=== PATIENT | male | born 1970 | race Two or more races ===

== ENCOUNTER 2023-11-08 07:16 | Day surgery (SDC) | payer OTHER ==
[2023-10-25 09:45] LABS: HEMATOCRIT 45.9 % (39.0-48.0); HEMOGLOBIN 15.8 g/dL (13-16.00); MEAN CELL VOLUME 94.9 fL (80.0-100.00); MEAN CORPUSCULAR HEMOGLOBIN 32.6 pg (27.00-32.0); MEAN CORPUSCULAR HGB CONC 34.4 g/dl (32.0-36.0); PLATELET COUNT 151 K/uL (150-450); RED BLOOD COUNT 4.84 M/uL (4.00-6.00); RED CELL DISTRIBUTION WIDTH 12.6 % (11.5-14.5)
[2023-10-25 09:47] LABS: PH,URINE 5.5 (5.0-8.0); URINE APPEARANCE Clear; URINE BILIRRUBIN Negative (NEGATIVE); URINE BLOOD Negative; URINE COLOR Yellow; URINE GLUCOSE Negative (NEGATIVE); URINE KETONE Trace (NEGATIVE); URINE LEUKOCYTE Negative; URINE NITRATE Negative; URINE PROTEIN Negative (NEGATIVE); URINE UROBILINOGEN 0.2 E.U./dl
[2023-10-25 09:52] LABS: URINE BACTERIA 16.3 uL (0.0-1933); URINE RBC 3.9 uL (0.0-20.8); URINE WBC 2.6 uL (0.0-23.2)
[2023-10-25 09:54] LABS: URINE CAST 0.15 uL (0.0-1.40); URINE EPITHELIAL CELLS 0.1 uL (0.0-38.8)
[2023-10-25 10:09] LABS: INR 0.99; PARTIAL THROMBOPLASTIN TIME 29.8 SECONDS (22.0-34.0); PROTHROMBIN TIME 10.8 SECONDS (9.0-11.5)
[2023-10-25 10:23] LABS: ALBUMIN 4.3 gm/dL (3.4-5.0); BILIRUBIN TOTAL 0.86 mg/dL (0.3-1.2); CALCIUM 9.3 mg/dL (8.5-10.1); CREATININE SERUM 0.9 mg/dL (0.70-1.30); GFR 88.61; POTASSIUM 4.1 mEq/L (3.5-5.1); TOTAL PROTEIN 7.3 gm/dL (6.4-8.2)
[~2023-11-08 07:16] MED LIST: AMLODIPINE BESY10 MG PO; COZAAR100 MG PO; LIPITOR20 MG PO; PEPCID AC10 MG PO
[2023-11-08] MEDS ORDERED: CEFAZOLIN SODIUM 1,000 MG VIAL ONE (09:01)
[2023-11-08] MEDS ORDERED: BUPIVACAINE HCL/Mpf 0.5% 10ML VIAL ONE (10:02)
[2023-11-08] MEDS ORDERED: LIDOCAINE HCL 1%/EPINEPHRINE 20ML VIAL IJ ONE ×2 (10:02→12:30)
[2023-11-08] MEDS ORDERED: NEURONTIN300 MG PO (11:01)
[2023-11-08] MEDS ORDERED: TRAMADOL HCL50 MG PO (11:01)
[2023-11-08] MEDS ORDERED: TYLENOL ARTHRI650 MG PO (11:01)
[2023-11-08] MEDS ORDERED: MIRALAX17 GM PO (11:01)
[2023-11-08] MEDS ORDERED: KETO10TA2 PO (11:01)
[2023-11-08] MEDS ORDERED: BUPIVACAINE HCL/MPF 0.5% 30ML VIAL ONE (11:03)
[2023-11-08] MEDS ORDERED: BUPIVACAINE HCL/PF 0.25% 30ML VIAL InF ONE (11:30)
[2023-11-08] MEDS ORDERED: CEFAZOLIN SODIUM 1,000 MG VIAL IV ONE (11:30)
[2023-11-08] MEDS ORDERED: KETOROLAC TROMETHAMINE 30 MG VIAL ONE (12:29)
[2023-11-08] MEDS ORDERED: KETOROLAC TROMETHAMINE 30 MG VIAL IV ONE (12:45)
[2023-11-08] MEDS ORDERED: MORPHINE SULFATE 4 MG/ML VIAL IV ONE (14:10)
== END 2023-11-08 15:40 | disposition home or self-care (01) ==
LOC: CIR.AMB 07:16
PROVIDERS: ATTEND Surgery
DX: K42.0 Umbilical hernia with obstruction, without gangrene (principal); K43.6 Other and unspecified ventral hernia with obstruction, without gangrene; I10 Essential (primary) hypertension; E78.00 Pure hypercholesterolemia, unspecified; G43.909 Migraine, unspecified, not intractable, without status migrainosus; K21.9 Gastro-esophageal reflux disease without esophagitis; H52.10 Myopia, unspecified eye
CPT/HCPCS: 49596; C1781